=== PATIENT | male | born 1945 | race Caucasian/White ===

== ENCOUNTER 2021-10-29 19:28 | Emergency (ER) | payer OTHER, MEDICARE, MEDICAID ==
[~2021-10-29] VITALS: Ht 182.9 cm; Wt 100.0 kg
[~2021-10-29 19:28] MED LIST: CEFP100T7 PO; FURO20TA4 PO; POTA-82 PO
[2021-10-29] MEDS ORDERED: LIDOcaine 1% W/epiNEPHrine 1:100,000 20ml vial SQ ONE (20:00)
[2021-10-29 20:36] VITALS: BP 154/87
== END 2021-10-29 21:30 | disposition home or self-care (01) ==
LOC: ER 19:29
DX: S01.01XA Laceration without foreign body of scalp, initial encounter (principal); S09.90XA Unspecified injury of head, initial encounter; F10.129 Alcohol abuse with intoxication, unspecified; F12.90 Cannabis use, unspecified, uncomplicated; Z86.19 Personal history of other infectious and parasitic diseases; Z90.49 Acquired absence of other specified parts of digestive tract; Z72.89 Other problems related to lifestyle; Z79.899 Other long term (current) drug therapy; Z88.8 Allergy status to other drugs, medicaments and biological substances; W22.8XXA Striking against or struck by other objects, initial encounter; Y93.89 Activity, other specified; Y92.89 Other specified places as the place of occurrence of the external cause; Y99.8 Other external cause status; Y90.9 Presence of alcohol in blood, level not specified
CPT/HCPCS: 12002; 99283

== ENCOUNTER 2025-04-21 09:50 | Inpatient (IN) | payer OTHER, MEDICARE, MEDICAID ==
[~2025-04-21] VITALS: Ht 195.6 cm; Wt 100.0 kg
[~2025-04-21 09:50] MED LIST changes: +POTA-366 PO; -POTA-82 PO
--- NOTE | 2025-04-21 11:17 | RADIOLOGY REPORT ---
CLINICAL INDICATION: necrotc great toe TECHNIQUE: Left DI FOOT, COMPLETE (3VW MIN) Comparison: FOOT, COMPLETE (3VW MIN) on DOS: 02/08/21 FINDINGS/IMPRESSION: : Soft-tissue swelling and subcutaneous emphysema of the distal 1st metatarsal and distal 1st digit. Suggestion of displaced fracture of the 1st distal phalanx. Probable erosive changes suspicious for osteomyelitis involving the 1st proximal and distal phalanx. Clinical correlation advised.
--- NOTE | 2025-04-21 11:21 | RADIOLOGY REPORT ---
CLINICAL INDICATION: TOE PAIN - RT FOOT TECHNIQUE: DI FOOT, COMPLETE (3VW MIN) Comparison: DI FOOT, COMPLETE (3VW MIN) on DOS: 04/21/25, FOOT, COMPLETE (3VW MIN) on DOS: 02/08/21 FINDINGS/IMPRESSION: : There is no evidence of acute fracture or dislocation. Soft tissues are unremarkable. Postsurgical resection of the distal 1st digit from the level of the metatarsal.
[2025-04-21 11:28] LABS: MEAN PLATELET VOLUME 9.5 FL (7.4-10.4); RED CELL DISTRIBUTION WIDTH 14.3 % (11.5-14.5)
--- NOTE | 2025-04-21 11:35 | Physician Documentation ---
History of Present Illness ~ Chief Complaint: Foot pain Stated Complaint: FOOT WOUND Time Seen by MD: 10:27 Primary Medical Doctor: LAVERNE MONROE 79-year-old male presents to the ED with a complaint of left foot pain for the last month. He states that his foot smells. He denies any fevers however denies any history of diabetes. This is a poor historian however he does say that he has been evaluated by a chucking machine set up operator tool. Day of Onset: Apr 21, 2025 Tetanus witin 5 years: Yes Medication Reconciliation Allergies: Coded Allergies: nystatin (Unverified Allergy, Mild, RASH, 04/21/25) HAS A RASH EVERY TIME HE TAKES IT. Scheduled Gabapentin (Gabapentin), 2 CAP PO Q8H, (Reported) Discontinued Medications Cefpodoxime Proxetil (Cefpodoxime Proxetil), Unknown Dose PO Q12H, (Reported) Discontinued Reason: patient no longer taking Furosemide (Furosemide), 1 TAB PO DAILY, (Reported) Discontinued Reason: patient no longer taking Potassium Chloride (Potassium Chloride), 1 TAB PO DAILY, (Reported) Discontinued Reason: patient no longer taking Past Medical History Past Medical History: Cellulitis Past Surgical History: cholecystectomy, orthopedic surgeries Patient History: FH: diabetes mellitus brother sister Alcohol Use: Abuse Drug Use: marijuana Lives with: Alone Lives In: Home Physical Exam Vital Signs: Temperature: 97.7, Source: Oral, Heart Rate: 79, Respiratory Rate: 18, BP: 144/97, Pulse Oximetry: 99, Weight: 100.000 Oxygen Flow Rate: 0 Physical Exam General: Alert, no apparent distress. HEENT: PERRL, EOMI, no injection, moist mucous membranes. Extremities: Foot is notable for necrotic tissue from the great toe proximal to the metatarsal. Drainage, decreased range of motion, foul smell Neurologic: Oriented x4. Psychiatric: Normal mood and affect. Skin: Normal color, warm and dry. No edema, no ecchymosis. Progress Results/Orders Results/Orders Orders - NOLA FLEMING NP Page Hospitalist (04/21/25 ) Completed Orders - NOLA FLEMING NP Vancomycin*Pharmacy To Dose* (Vancomycin (04/21/25 11:30) Vancomycin/Ns 1 Gm Add-[place] (Vancomyc (04/21/25 11:40) Medications Received in ER Medications (Trade) Dose Ordered Sig/Xiao Route PRN Reason Start Time Stop Time Status Last Admin Dose Admin Vancomycin HCl 250 ml @ 166 mls/hr ONCE ONCE IV 04/21/25 11:40 04/21/25 13:10 DC 04/21/25 12:03 166 MLS/HR ([place] 10/325mg tab) 1 tab Q4H PRN PO SEVERE PAIN 7-10 04/21/25 11:45 04/21/25 12:24 1 TAB Sodium Chloride 1,000 ml @ 100 mls/hr Q10H IV 04/21/25 11:45 04/21/25 12:24 100 MLS/HR Vital Signs 04/21/25 04/21/25 04/21/25 09:57 11:20 11:20 Temp 97.7 Pulse 75 79 Resp 18 18 18 B/P (MAP) 128/85 144/97 (113) Pulse Ox 99 O2 Flow Rate 0 Laboratory Tests Test 04/21/25 11:01 White Blood Count 19.6 H Red Blood Count 4.69 L Hemoglobin 15.5 Hematocrit 45.4 Mean Corpuscular Volume 96.7 Mean Corpuscular Hemoglobin 33.0 H Mean Corpuscular Hemoglobin Concent 34.2 Red Cell Distribution Width 14.3 Platelet Count 372 Mean Platelet Volume 9.5 Neutrophils (%) (Auto) 89.6 H Lymphocytes (%) (Auto) 6.2 L Monocytes (%) (Auto) 3.3 Eosinophils (%) (Auto) 0.1 Basophils (%) (Auto) 0.8 Neutrophils # (Auto) 17.5 H Lymphocytes # (Auto) 1.2 Monocytes # (Auto) 0.7 Eosinophils # (Auto) 0.0 Basophils # (Auto) 0.2 CBC Comment Sodium Level 132 L Potassium Level 4.5 Chloride Level 97 L Carbon Dioxide Level 26.8 Anion Gap 8 Blood Urea Nitrogen 19 H Creatinine 0.88 Estimated GFR/1.73 m2 84 BUN/Creatinine Ratio 21.6 H Glucose Level 110 H Lactic Acid Level 2.6 H Calcium Level 9.5 Albumin 2.3 L Procalcitonin 0.13 Chemistry Comments Microbiology Date/Time Source Procedure Growth Status 04/21/25 11:08 Blood Hand Left Blood Culture - Preliminary NEGATIVE (LESS THAN 24 HOURS) Resulted Medical Decision Making Findings Spoke to Dr. Hearn regarding this patient he will evaluate the patient take him to the OR tomorrow Toe Diff Dx:Considerations: Include: Abrasion, Cellulitis, Contusion, D islocation, Felon, Fracture, Hematoma, Laceration, Neurovascular injury, Open fracture, Paronychia, Subungual hematoma, Other Departure Disposition: ADMITTED INPATIENT Impression: Primary Impression: Necrosis Additional Impression: Osteomyelitis of ankle or foot, left, acute Condition: Stable Referrals: NO PRIMARY CARE PROVIDER (PCP) Signature Scribe Signature: f Attestation: Scribed for Nola Fleming Component Prep Operator by Nola Dunn NP . 04/21/25 15:06 ONLA FLEMING NP Apr 21, 2025 11:35
[2025-04-21 11:43] LABS: CREATININE 0.88 MG/DL (0.60-1.10); TOTAL CARBON DIOXIDE 26.8 MMOL/L (24-32); eCRCL 89 ML/MIN; eGFR 84 ML/MIN
[2025-04-21] MEDS ORDERED: potassium Cl 40MEQ/1/2NS 520ml 520 ML IV PRN (11:45)
[2025-04-21] MEDS ORDERED: potassium Cl 20 mEq SR tablet PO PRN ×2 (11:45)
[2025-04-21] MEDS ORDERED: magnesium sulf-water 2g/50mL 50 ML IV PRN (11:45)
[2025-04-21] MEDS ORDERED: magnesium Cl slow-release 64mg tablet PO PRN (11:45)
[2025-04-21] MEDS ORDERED: magnesium sulf-water 4G/100mL 100 ML IV PRN (11:45)
[2025-04-21] MEDS ORDERED: ondansetron/PF 4mg/2ml inj IV PRN (11:45)
[2025-04-21] MEDS ORDERED: GABA-530 PO (11:56)
[2025-04-21] MEDS: vancomycin/NS 1 GM ADD-VANTAGE 250 ML X 1 DOSE IV ONE (12:03)
[2025-04-21] MEDS: normal saline 1000ml 1,000 ML IV SCH (12:24)
[2025-04-21] MEDS: HYDROcodone/acetaminophen 10/325mg tab PO PRN (12:24)
[2025-04-21 14:05] LABS: LEUKOCYTE ESTERASE ,URINE NEGATIVE (Neg); OCCULT BLOOD,URINE NEGATIVE (Neg)
[2025-04-21 14:08] LABS: NITRITES, URINE NEGATIVE (Neg); UA COLLECTION TYPE NON-SPECIFIED
[2025-04-21 14:17] LABS: MUCUS STRANDS MODERATE /LPF (Neg); RENAL CELLS, URINE MODERATE /HPF; SQUAMOUS EPITHELIAL CELL,UR FEW /LPF (FEW)
[2025-04-21 14:23] LABS: AMORPHOUS URATES 1+
--- NOTE | 2025-04-21 15:10 | RADIOLOGY REPORT ---
CHEST RADIOGRAPH Indication: RO SEPSIS Technique: Single frontal view of the chest was obtained COMPARISON: CHEST,SINGLE VIEW on DOS: 02/15/21 FINDINGS: Lines and Tubes: None Lungs: Clear Pleura: No effusion. No pneumothorax. Cardiomediastinal contours: Unremarkable Bones: Unremarkable IMPRESSION: No acute disease.
[2025-04-21 15:25] VITALS: BP 130/80; PULSE 99; RESP 18; TEMP 97.5; O2SAT 99
[2025-04-21 15:46] VITALS: RESP 16; O2SAT 98
[2025-04-21 18:00] VITALS: BP 124/74; PULSE 80; RESP 18; TEMP 97.2; O2SAT 99
[2025-04-21] MEDS: HYDROcodone/acetaminophen 5mg/325mg tablet PO PRN (18:01)
--- NOTE | 2025-04-21 18:37 | HISTORY AND PHYSICAL ---
History & Physical Providers to CC ~ History of Present Illness Reason for Admit\Complaint: Wound over left foot getting worse History of Present Illness Patient is 79-year-old male as per patient he only takes two medication gabapentin and one more. He is not a very good historian. He mentioned since last one month his condition is decline more he had a fall and now he is at the point that he has to crawl on his back to get to the bed. He is not walking currently. He lives by himself. According to patient he is smoking one pack of cigarettes per day. He mentioned that since last two months the wound over the left foot is getting more bad. He was using compression stockings over lower extremity which did not helped. He was also using ammonium lactate but feels that is also not working. He was seen by with primary care physician in [place] Dr. Sanchez. He is currently sober last drink of alcohol in December, use cannabis more than one month back. He was seen by Podiatry specialist in past Dr. López. He states that his foot smells. He denies any fevers however denies any history of diabetes. Osteomyelitis of left foot suspected and hospitalist services contacted for admission and further management Allergies: Coded Allergies: nystatin (Unverified Allergy, Mild, RASH, 04/21/25) HAS A RASH EVERY TIME HE TAKES IT. Home Medications Home Medications Active Reported Gabapentin 100 Mg Capsule 2 Cap PO Q8H Past Medical History Past Medical History Chronic right great toe infection Past Surgical History Surgical History Comment Cholecystectomy, orthopedic surgeries Family History Family History: FH: diabetes mellitus brother sister Past Social History Social History Comment Smokes a pack of cigarettes a day, ROS ROS Review of system as mentioned above in HPI rest unremarkable Exam Vitals: Vital Signs Date Time Temp Pulse Resp B/P (MAP) Pulse Ox O2 Delivery O2 Flow Rate FiO2 04/21/25 15:46 16 98 Room Air 04/21/25 15:25 97.5 99 130/80 (97) 04/21/25 14:00 0 General: General-patient not in any acute distress, alert awake chronically ill- appearing HEENT-atraumatic normocephalic, neck supple without elevated JVD, no thyromegaly or carotid bruit. No lymphadenopathy bilaterally. Eyes-no icterus or pallor seen in eyes Chest-clear to auscultation bilaterally, breathing nonlabored no tachypnea, no wheezing, no crepitation, no crackles. Heart-S1-S2 normal, regular heart rate no murmur Abdomen bowel sounds positive on auscultation, soft nondistended nontender no guarding, no rigidity Skin/Extremity- able to move all 4 extremities, gangrenous and necrotic left toes Neurology-grossly intact, nonfocal alert awake Psychiatry - patient is not confused or agitated cooperated during physical examination Diagnostic Data Last Recorded Lab Results: 04/21/25 1101 04/21/25 1101 Advance Care Planning Advanced Care plannin - 30 Minutes Additional Plan Patient is 79-year-old male status post right hip hemiarthroplasty, status post right hallux amputation. History of chronic great toe cellulitis and osteomyelitis, current tobacco use. Patient is admitted for gangrenous and necrotic left foot, suspected osteomyelitis of left foot. ER provider Spoke to Dr. Hearn regarding this patient he will evaluate the patient take him to the OR tomorrow. We will keep patient NPO after midnight on no blood thinner. Patient is started on IV antibiotics and fluids. Further management as recommended by senior loss control specialist. We will do home medication reconciliation once updated in electronic medical records. Code status discussed with the patient patient wishes to stay full code, time spent 16 minute. I will continue to follow patient in a.m. Date of Service: Apr 21, 2025 Billing Provider: GUY MORALES MD Common Visit Codes: [id number] INP/OBS CARE (HIGH) Secondary Visit Codes: [id number] CARE PLAN 30 MINUTES GUY MORALES MD Apr 21, 2025 18:36
[2025-04-21 20:00] VITALS: RESP 18; O2SAT 99
[2025-04-21] MEDS ORDERED: heparin, porcine 5000 units/ml vial SQ SCH (20:00)
[2025-04-21 22:00] VITALS: BP 104/60; PULSE 86; RESP 16; TEMP 98; O2SAT 93
[2025-04-22] VITALS (19 sets, daily range): BP systolic 112–142; BP diastolic 68–74; PULSE 52–79; RESP 11–22; TEMP 97–98.1; O2SAT 92–99
[2025-04-22] MEDS: vancomycin/NS 1 GM ADD-VANTAGE 250 ML IV SCH (00:15)
[2025-04-22 04:51] LABS: MEAN PLATELET VOLUME 9.1 FL (7.4-10.4); RED CELL DISTRIBUTION WIDTH 14.3 % (11.5-14.5)
[2025-04-22 05:09] LABS: CREATININE 0.87 MG/DL (0.60-1.10); TOTAL CARBON DIOXIDE 29.1 MMOL/L (24-32); eCRCL 90 ML/MIN; eGFR 85 ML/MIN
[2025-04-22] MEDS ORDERED: bacitracin 15gm ointment TP ONE (09:05)
--- NOTE | 2025-04-22 09:38 | ELECTROCARDIOGRAPH REPORT ---
[facility] Test Date: 2025-04-22 Test Time: 07:13:08 Pat Name: CYNTHIA CAMPUZANO Department: Room: [place] [address] A Gender: M Emergency Care Attendant: ADRY : 1945 Requested By: PIETER LOPEZ Order Number: [id number] Reading MD: Dr. ANDREA Flores Measurements Intervals [place] Rate: 74 P: 25 RI: 176 QRS: 1 QRSD: 144 T: 25 QT: 436 QTc: 483 Interpretive Statements Sinus rhythm with occasional premature ventricular complexes and fusion complexes Right bundle branch block Electronically Signed On 04-22-2025 17:31:[address] ANDREA Flores Please click the below link to view image of tracing.
[2025-04-22] MEDS: ringers solution, lacted 1,000 ML IV SCH (10:05)
[2025-04-22] MEDS ORDERED: ondansetron/PF 4mg/2ml inj IV PRN (10:05)
[2025-04-22] MEDS ORDERED: hydrALAZINE 20mg/ml inj. IV PRN (10:05)
[2025-04-22] MEDS ORDERED: labetalol 20mg/4ml (5mg/ml) syringe IV PRN (10:05)
[2025-04-22] MEDS ORDERED: fentaNYL/PF 50MCG/1 ML 2ML syringe IV PRN ×2 (10:05)
[2025-04-22] MEDS ORDERED: morphine 4 MG/ML inj SYRINge IV PRN (10:05)
[2025-04-22] MEDS ORDERED: midazolam 1 mg/ML 2ml injection ONE ×2 (10:28→11:41)
[2025-04-22] MEDS ORDERED: MIDAZolam 1 MG/ML 5ML VIAL ONE (11:42)
[2025-04-22] MEDS: bacitracin 15gm ointment TP ONE (12:03)
--- NOTE | 2025-04-22 13:18 | CONSULTATION REPORT ---
History of Present Illness Providers to CC ~ Reason for Admit\Admit Dx: Wound over left foot getting worse Refering MD: LAVERNE History of Present Illness 79-year-old male who presents with progressive wound drainage involving the left foot. He was admitted for gangrenous involvement involving his left foot including osteomyelitis of several falls in his left foot. Past medical history: This is per admitting history and physical which was reviewed by me Patient denies alcohol and/or tobacco use. Review of systems: Patient is having isolated pain involving the left lower extremity denies any other extremity pain at this time. Examination: Alert oriented disheveled-appearing white male in no acute distress. Extremity exam lower extremities reveal significant ischemic changes with absent distal pulses two and chronic ischemic skin changes involving the right foot previous great toe amputation. Left foot has had had previous debridements to his left foot with ischemic necrotic tissue involving absent ankle pulses on exam. Ischemic changes of the proximal 2/3 of his lower extremity no evidence of gross cellulitis. Ischemic changes began approximately 3 in above the ankle mortise. Assessment: Has obvious osteomyelitic involvement of the left foot with + ischemic changes and gangrenous changes involving the skin and deep tissues of the left foot. Plan: Patient has opted for surgical [id number] amputation and after the table with minimize potential for progressive septicemia. He understands the indications risks benefits limitations and potential complications from this procedure. Intraoperative findings will dictate whether or not this can be a single procedure or a staged procedure/debridement. We placed in the surgery center schedule as soon as time allows. Thank you for the consultation Allergies: Coded Allergies: nystatin (Unverified Allergy, Mild, RASH, 04/21/25) HAS A RASH EVERY TIME HE TAKES IT. Home Medications Home Medications Active Reported Gabapentin 100 Mg Capsule 2 Cap PO Q8H Past Family History Family History: FH: diabetes mellitus brother sister Physical Exam Last Vital Signs Recorded: Temperature: 97.0, Source: Temporal, Heart Rate: 67, Respiratory Rate: 11, BP: 116/72, Pulse Oximetry: 93, Weight: 100.000 Results Diagram Lab Result Diagram: 04/22/25 0432 04/22/25 0432 PIETER LOPEZ MD Apr 22, 2025 13:18
--- NOTE | 2025-04-22 13:29 | OPERATIVE REPORT ---
Operative Report Providers to ~ Date of Procedure: Apr 22, 2025 Pre-Operative Diagnosis: possible Osteomyelitis involving the 1st proximal and distal phalanx Post-Operative Diagnosis SAME as PRE-Op Procedure Performed Xkzdl-[id number]-hlmy amputation left foot with primary closure over a drain Surgeon: Trung Lopez MD Honing Machine Operator None Anesthesiologist: [place] Javier Type of Anesthesia: Other, Spinal Findings: Patient is found to have gross purulent changes consistent with osteomyelitis involving his left foot in his ischemic extensive ischemic changes involving the mid and hindfoot. With gross ulceration of his 1st ray and portions of his hindfoot. Complications None Prosthetics\Implants used: None Estimated Blood Loss: 100 mL Specimen Removed: [id number] the lower leg was removed approximately 5 in below the joint line Description of Procedure: Patient was taken to the operating room after informed consents were obtained. I discussed with him the indications his treatment options relative limitations potential complications to his understanding and satisfaction. Once informed consents were signed for taken to the operating room releasing him a spinal anesthetic and placed in the supine position in the OR table right leg was placed in an SCD devices left leg was placed in an upper thigh tourniquet which was well padded the leg was now prepped and draped in usual sterile orthopaedic fashion. A impervious drape was placed around the foot and ankle and Coban was used to isolate this portion of the extremity. Surgical time-out was taken per protocol and the case was begun. After the leg had an elevated for 10 minutes tourniquet was insufflated. The skin incisions were outlined with indelible marker anterior 3rd incision transition transverse incision was made approximately 15 cm below the joint line and then longitudinal incisions at at each end of this med medial and mid lateral were then extended down to approximately 2/3 the length of the anterior incision and then a transverse incision was made posterior to connect these two longitudinal incisions for the amputation. Dissection was then carried through the anterior and lateral and medial incision visualize the musculature using electrocautery dissection was then proceeded to expose the tibia once this was visualized in sagittal saw was used to make an perpendicular cut process bone. Dissection was then carried down laterally and a proximally 1 in proximal to the amputation site of the tibia to osteotomy of the proximal fibula hemostasis was achieved and then cauterized neurovascular structures throughout the case using 0 Vicryl ties and/or electrocautery release of the anterior lateral compartment. Neurovascular structures posterior to the tibia were tied off with 0 Vicryl and then they amputation leg was used to trim the posterior flap and debulk it all the way down to the posterior incision. Leg was now removed from the table and sent for pathology for gross evaluation. Wounds were copiously irrigated there were no signs of ischemic changes or necrotic material and/or purulent material. Tourniquet was released and hemostasis was achieved again with 0 Vicryl ties and/or electrocautery good vascularity to the flap posterior flap was intact. After 2 L of antiseptic irrigation of the posterior flap was brought anterior over a medium Hemovac drain and sutured into the periosteum and and anterior fascia with interrupted sutures of 2. FiberWire using a [id number]-ri-xajki sutures the skin was then closed with 0 Vicryl subcuticularly achieving complete closure of the skin and then itself was closed with skin lance. The capillary refill returned and remained in the posterior flap. Hemovac drain was placed to close suction sterile dressings were applied bulky dressing was placed in the distal stump site with a shrink sock in place held in position with Coban tape. Patient was now transferred to the rlamar and recovery room in stable condition there were no apparent perioperative complications needle and sponge count was reported to be correct Counts repoted as correct: Yes TRUNG LOPEZ MD Apr 22, 2025 13:29
[2025-04-22] MEDS ORDERED: oxyCODONE/APAP 5-325mg tablet PO PRN ×2 (18:40→20:25)
--- NOTE | 2025-04-22 19:23 | PROGRESS NOTE ---
Daily Progress Note Providers to CC ~ Antibiotic Timeout Antibiotic Ordered?: Yes Subjective Patient was seen in his room in presence of nursing staff patient mentioned that oxycodone work better for him instead of morphine and [place]. Patient usually sleeps on his side and wanted something to help him for sleeping. I restarted diet for him and we will re-evaluate patient in a.m. Objective Vital Signs Date Time Temp Pulse Resp B/P (MAP) Pulse Ox O2 Delivery O2 Flow Rate FiO2 04/22/25 17:07 18 04/22/25 16:10 97.7 68 133/69 (90) 92 Room Air 04/22/25 13:20 0.0 Result Diagram: 04/22/25 0432 04/22/25 043 General-patient not in any acute distress, awake chronically ill-appearing HEENT-atraumatic normocephalic, neck supple without elevated JVD, no thyromegaly or carotid bruit. No lymphadenopathy bilaterally. Eyes-no icterus or pallor seen in eyes Chest-clear to auscultation bilaterally, breathing nonlabored no tachypnea, no wheezing, no crepitation, no crackles. Heart-S1-S2 normal, regular heart rate no murmur Abdomen bowel sounds positive on auscultation, soft nondistended nontender no guarding, no rigidity Skin/Extremity- able to move upper extremities , surgical dressing in place over left lower extremity, Neurology-grossly intact, nonfocal awake Psychiatry - patient is not confused or agitated cooperated during physical examination Problem\Assessment\Plan 04/21/25- Patient is 79-year-old male status post right hip hemiarthroplasty, status post right hallux amputation. History of chronic great toe cellulitis and osteomyelitis, current tobacco use. Patient is admitted for gangrenous and necrotic left foot, suspected osteomyelitis of left foot. ER provider Spoke to Dr. Hearn regarding this patient he will evaluate the patient take him to the OR tomorrow. We will keep patient NPO after midnight on no blood thinner. Patient is started on IV antibiotics and fluids. 04/22/25- s/p Ulnlh-nnu-nyaj amputation left foot with primary closure over a drain for possible Osteomyelitis involving the 1st proximal and distal phalanx by Dr Trung Hearn MD. Further management as recommended by habilitation specialist. home medication reconciliation updated in electronic medical records. # Code status discussed with the patient patient wishes to stay full code Patient's current condition is guarded we will continue to follow patient in a.m. I will continue to follow patient in a.m. Date of Service: Apr 22, 2025 Billing Provider: GUY MORALES MD Common Visit Codes: [id number] INP/OBS CARE(HIGH) GUY MORALES MD Apr 22, 2025 19:23
[2025-04-22] MEDS: VANCOMYCIN LEVEL IV ONE (23:30)
[2025-04-23] VITALS (7 sets, daily range): BP systolic 112–155; BP diastolic 65–92; PULSE 53–78; RESP 15–20; TEMP 97.5–98.7; O2SAT 92–96
[2025-04-23 06:03] LABS: MEAN PLATELET VOLUME 9.1 FL (7.4-10.4); RED CELL DISTRIBUTION WIDTH 14.1 % (11.5-14.5)
[2025-04-23 06:15] LABS: CREATININE 0.61 MG/DL (0.60-1.10); TOTAL CARBON DIOXIDE 30.6 MMOL/L (24-32); eCRCL 128 ML/MIN; eGFR > 90 ML/MIN
[2025-04-23] MEDS: VANCOmycin 1250MG/NS 250ml Bag 250 ML IV SCH (12:11)
--- NOTE | 2025-04-23 20:39 | PROGRESS NOTE ---
Daily Progress Note Providers to CC ~ Antibiotic Timeout Antibiotic Ordered?: Yes Subjective Patient looks comfortable. He is waiting for the rehab placement no new concerns. sales and business development manager Ariadna working on rehab discharge plan Objective Vital Signs Date Time Temp Pulse Resp B/P (MAP) Pulse Ox O2 Delivery O2 Flow Rate FiO2 04/23/25 19:41 16 04/23/25 18:00 97.6 53 124/67 (86) 96 Room Air 04/22/25 13:20 0.0 Result Diagram: 04/23/25 0438 04/23/25 0438 General-patient not in any acute distress, awake chronically ill-appearing HEENT-atraumatic normocephalic, neck supple without elevated JVD, no thyromegaly or carotid bruit. No lymphadenopathy bilaterally. Eyes-no icterus or pallor seen in eyes Chest-clear to auscultation bilaterally, breathing nonlabored no tachypnea, no wheezing, no crepitation, no crackles. Heart-S1-S2 normal, regular heart rate no murmur Abdomen bowel sounds positive on auscultation, soft nondistended nontender no guarding, no rigidity Skin/Extremity- able to move upper extremities , surgical dressing in place over left lower extremity, Neurology-grossly intact, nonfocal awake Psychiatry - patient is not confused or agitated cooperated during physical examination Problem\Assessment\Plan 04/21/25- Patient is 79-year-old male status post right hip hemiarthroplasty, status post right hallux amputation. History of chronic great toe cellulitis and osteomyelitis, current tobacco use. Patient is admitted for gangrenous and necrotic left foot, suspected osteomyelitis of left foot. ER provider Spoke to Dr. Hearn regarding this patient he will evaluate the patient take him to the OR tomorrow. We will keep patient NPO after midnight on no blood thinner. Patient is started on IV antibiotics and fluids. 04/22/25- s/p Fbivp-gnp-lfau amputation left foot with primary closure over a drain for possible Osteomyelitis involving the 1st proximal and distal phalanx by Dr Trung Hearn MD. Further management as recommended by strategy specialist. home medication reconciliation updated in electronic medical records. # Code status discussed with the patient patient wishes to stay full code Patient's current condition is guarded we will continue to follow patient in a.m. I will continue to follow patient in a.m. Date of Service: Apr 23, 2025 Billing Provider: GUY MORALES MD Common Visit Codes: [id number] INP/OBS CARE(HIGH) GUY MORALES MD Apr 23, 2025 20:39
[2025-04-24 05:50] LABS: MEAN PLATELET VOLUME 8.8 FL (7.4-10.4); RED CELL DISTRIBUTION WIDTH 14.2 % (11.5-14.5)
[2025-04-24 06:16] LABS: CREATININE 0.70 MG/DL (0.60-1.10); TOTAL CARBON DIOXIDE 30.9 MMOL/L (24-32); eCRCL 111 ML/MIN; eGFR > 90 ML/MIN
[2025-04-24 06:35] VITALS: BP 130/67; PULSE 63; RESP 20; TEMP 98; O2SAT 96
[2025-04-24 08:00] VITALS: RESP 18
[2025-04-24 10:00] VITALS: BP 110/58; PULSE 90; RESP 18; TEMP 97.6; O2SAT 93
--- NOTE | 2025-04-24 11:54 | PROGRESS NOTE ---
Daily Progress Note Providers to CC ~ Antibiotic Timeout Antibiotic Ordered?: Yes Subjective Patient was seen in his room , looks comfortable. Patient is waiting for rehab placement . regional branch manager Ariadna working on rehab discharge plan for him. Objective Vital Signs Date Time Temp Pulse Resp B/P (MAP) Pulse Ox O2 Delivery O2 Flow Rate FiO2 04/24/25 08:00 18 Room Air 04/24/25 06:35 98.0 63 130/67 (88) 96 04/22/25 13:20 0.0 Result Diagram: 04/24/25 0509 04/24/25 0509 General-patient not in any acute distress, awake chronically ill-appearing HEENT-atraumatic normocephalic, neck supple without elevated JVD, no thyromegaly or carotid bruit. No lymphadenopathy bilaterally. Eyes-no icterus or pallor seen in eyes Chest-clear to auscultation bilaterally, breathing nonlabored no tachypnea, no wheezing, no crepitation, no crackles. Heart-S1-S2 normal, regular heart rate no murmur Abdomen bowel sounds positive on auscultation, soft nondistended nontender no guarding, no rigidity Skin/Extremity- able to move upper extremities , surgical dressing in place over left lower extremity, Neurology-grossly intact, nonfocal awake Psychiatry - patient is not confused or agitated cooperated during physical examination Problem\Assessment\Plan 04/21/25- Patient is 79-year-old male status post right hip hemiarthroplasty, status post right hallux amputation. History of chronic great toe cellulitis and osteomyelitis, current tobacco use. Patient is admitted for gangrenous and necrotic left foot, suspected osteomyelitis of left foot. ER provider Spoke to Dr. Hearn regarding this patient he will evaluate the patient take him to the OR tomorrow. We will keep patient NPO after midnight on no blood thinner. Patient is started on IV antibiotics and fluids. 04/22/25- s/p Xxdap-gac-[id number] amputation left foot with primary closure over a drain for possible Osteomyelitis involving the 1st proximal and distal phalanx by Dr Trung Hearn MD. Further management as recommended by customer sales specialist. home medication reconciliation updated in electronic medical records. # Code status discussed with the patient patient wishes to stay full code Patient's current condition is guarded we will continue to follow patient in a.m. I will continue to follow patient in a.m. Date of Service: Apr 24, 2025 Billing Provider: GUY MORALES MD Common Visit Codes: [id number] INP/OBS CARE(HIGH) GUY MORALES MD Apr 24, 2025 11:54
[2025-04-24 18:00] VITALS: BP 119/70; PULSE 70; RESP 18; TEMP 97.3; O2SAT 93
[2025-04-24 20:00] VITALS: RESP 16; O2SAT 98
[2025-04-24 22:00] VITALS: BP 128/62; PULSE 68; RESP 16; TEMP 98.4; O2SAT 95
[2025-04-24] MEDS: magnesium hydroxide 30ml (MOM) UD suspension PO PRN (22:15)
[2025-04-25] MEDS: VANCOMYCIN LEVEL IV ONE (00:29)
[2025-04-25 06:00] LABS: MEAN PLATELET VOLUME 8.8 FL (7.4-10.4); RED CELL DISTRIBUTION WIDTH 14.5 % (11.5-14.5)
[2025-04-25 06:20] VITALS: BP 127/77; PULSE 63; RESP 16; TEMP 97.9; O2SAT 94
[2025-04-25 11:00] VITALS: BP 119/69; PULSE 64; RESP 16; TEMP 98.2; O2SAT 96
--- NOTE | 2025-04-25 14:52 | DISCHARGE SUMMARY ---
Discharge Summary Providers to CC ~ Discharge Summary Admission Diagnosis: possible Osteomyelitis involving the 1st proximal and distal phalanx Hospital Course DATE OF ADMISSION: April 21, 2025 DATE OF DISCHARGE: April 25, 2025 CBC testing done on April 25, 2025 WBC 8.2 hemoglobin 11.3 hematocrit 33.0 plat elet count 268. Serum chemistry done on April 24, 2025 sodium 137 potassium 3.6 creatinine 0.70 GFR 90 normal liver enzymes. Procalcitonin 0.13. Blood culture showed no growth after 4 days. FOOT, COMPLETE (3VW MIN)FINDINGS/IMPRESSION: : Soft-tissue swelling and subcutaneous emphysema of the distal 1st metatarsal and distal 1st digit. Suggestion of displaced fracture of the 1st distal phalanx. Probable erosive changes suspicious for osteomyelitis involving the 1st proximal and distal phalanx. Clinical correlation advised. FOOT, COMPLETE (3VW MIN)FINDINGS/IMPRESSION: : There is no evidence of acute fracture or dislocation. Soft tissues are unremarkable. Postsurgical resection of the distal 1st digit from the level of the metatarsal. CHEST,SINGLE VIEW-IMPRESSION: No acute disease. Discharge Diagnosis\Comment: s/p Sxhpp-wqu-xjkc amputation left foot with primary closure over a drain for possible Osteomyelitis involving the 1st proximal and distal phalanx , status post right hip hemiarthroplasty, status post right hallux amputation. History of chronic great toe cellulitis and osteomyelitis, current tobacco use. Operations\Procedures: s/p Anjgp-hzk-dyen amputation left foot with primary closure over a drain for possible Osteomyelitis involving the 1st proximal and distal phalanx Consultants: Dr Trung Hearn MD. Complications: None Condition on DC: Stable Discharge Summary: Patient is 79-year-old male status post right hip hemiarthroplasty, status post right hallux amputation. History of chronic great toe cellulitis and osteomyelitis, current tobacco use. Patient is admitted for gangrenous and necrotic left foot, suspected osteomyelitis of left foot. ER provider Spoke to Dr. Hearn regarding this patient he evaluated the patient take him to the OR on 04/22/25. Patient is started on IV antibiotics and fluids. s/p Sdhsg-iqk-fqtu amputation left foot with primary closure over a drain for possible Osteomyelitis involving the 1st proximal and distal phalanx by Dr Trung Hearn MD. followed Further management as recommended by business process specialist. home medication reconciliation updated in electronic medical records. Patient's clinical condition improved during hospitalization and he is stable throughout his hospitalization stay. Patient is seen and examined on the day of discharge. He is discharged to rehab facility medication reconciliation done for rehab facility today. Case discussed with Dr. Hearn who is okay to discharge the patient on Keflex for three weeks. He wants to follow up with the patient in 2- 3 weeks. Drain removed and dressing change before his discharge. All questions and concerns answered to the best of my professional medical knowledge. General-patient not in any acute distress, awake chronically ill-appearing HEENT-atraumatic normocephalic, neck supple without elevated JVD, no thyromegaly or carotid bruit. No lymphadenopathy bilaterally. Eyes-no icterus or pallor seen in eyes Chest-clear to auscultation bilaterally, breathing nonlabored no tachypnea, no wheezing, no crepitation, no crackles. Heart-S1-S2 normal, regular heart rate no murmur Abdomen bowel sounds positive on auscultation, soft nondistended nontender no guarding, no rigidity Skin/Extremity- able to move upper extremities , surgical dressing in place over left lower extremity, Neurology-grossly intact, nonfocal awake Psychiatry - patient is not confused or agitated cooperated during physical examination *Problems/Diagnosis: (1) Osteomyelitis of ankle or foot, left, acute Status: Acute Total Time Spent on D/C: > 30 Minutes Date of Service: Apr 25, 2025 Billing Provider: GUY MORALES MD Common Visit Codes: 55689-INS/OBS DISCH DAY >30min GUY MORALES MD Apr 25, 2025 14:47
[2025-04-25] MEDS: vancomycin/NS 1 GM ADD-VANTAGE 250 ML IV SCH (15:38)
[2025-04-25 18:00] VITALS: BP 149/86; PULSE 85; RESP 18; TEMP 97.9; O2SAT 92
[2025-04-26] MEDS ORDERED: VANCOMYCIN LEVEL IV ONE (23:30)
== END 2025-04-25 18:48 | DRG 475 ==
LOC: ER 09:50 → ED HOLD 11:50 → SUR 3N 15:05
PROVIDERS: ADMIT Internal Medicine; ATTEND Internal Medicine
PROC: 0Y6J0Z1 Detachment at Left Lower Leg, High, Open Approach (ICD-10-PCS; principal; 2025-04-22 10:28)
DX: M86.172 Other acute osteomyelitis, left ankle and foot (principal); I96 Gangrene, not elsewhere classified; F17.210 Nicotine dependence, cigarettes, uncomplicated; Z83.3 Family history of diabetes mellitus
CPT/HCPCS: 36415; 71045; 73630; 80048; 80053; 80202; 81001; 82550; 82948; 83605; 84145; 85025; 87040; 87081; 93005; 96365; 96366; 96375; 97110; 97161; 97530; 99285; A4618; A6253; A6258; A6446; A6449; A7000; G0378; J2250; J2270; J3373; J3374; J7030; J7120

== ENCOUNTER 2025-08-06 13:28 | Emergency (ER) | payer OTHER, MEDICARE, MEDICAID ==
[~2025-08-06] VITALS: Ht 182.9 cm; Wt 102.2 kg
[~2025-08-06 13:28] MED LIST changes: -CEFP100T7 PO; -FURO20TA4 PO; +GABA-530 PO; +OXYC-150 PO; -POTA-366 PO
[2025-08-06 13:37] VITALS: BP 146/84; PULSE 65; TEMP 97.8; O2SAT 98
--- NOTE | 2025-08-06 15:24 | Physician Documentation ---
History of Present Illness ~ Chief Complaint: Leg Pain Stated Complaint: STENOSIS IN ARTERY Time Seen by MD: 14:28 OK to notify your PCP?: Yes Primary Medical Doctor: LAVERNE Source: patient Mode of Arrival: POV Exam Limitations: no limitations HPI Presenting via ambulance from [facility] acute for possible occlusion to the left leg. He denies having any leg pain, he does have a mzisr-alq-hhek amputation to the left leg 12 done in April of this year. He has yet to start wearing a prosthesis. He does have in his packet a report from paresthesia that was done yesterday for bilateral lower extremity arterial ultrasound and the impression shows findings consistent with moderate peripheral vascular disease without occlusion to the right extremity follow up MRA or CTA may be obtained as clinically warranted., findings consistent with mild to moderate peripheral vascular disease nxhlm-dca-fcwq without occlusion left lower extremity. Moderate stenosis 50-75% of the right proximal superficial femoral artery. Moderate stenosis 50-75% of the left posterior tibial artery, anterior tibial tibial artery. Mild plaque is noted within visualized arteries bilaterally. Patient reports that he was told that he had a blockage in his leg and needed to come here immediately. He denies any leg pain in either leg at this time. He is off dressing to the right foot for ulcerated toe. He reports that the wound care nurse change his bandage today. He reports it is looking much better than it used to. He denies any pain in that foot. Tetanus witin 5 years: Yes Medication Reconciliation Allergies: Coded Allergies: nystatin (Unverified Allergy, Mild, RASH, 08/06/25) HAS A RASH EVERY TIME HE TAKES IT. Scheduled Gabapentin (Gabapentin), 2 CAP PO Q8H, (Reported) Oxycodone HCl/Acetaminophen (Percocet 10-325 mg Tablet), 1 TAB PO DAILY, (Reported) Past Medical History Past Medical History: Cellulitis Past Surgical History: cholecystectomy, orthopedic surgeries Patient History: FH: diabetes mellitus brother sister Alcohol Use: Abuse Drug Use: marijuana Lives with: Alone Lives In: Home Physical Exam Vital Signs: RN Vital Signs have been reviewed: Yes, Temperature: 97.8, Source: Oral, Heart Rate: 65, Respiratory Rate: 18, BP: 146/84, Pulse Oximetry: 98, Weight: 102.200 Oxygen Flow Rate: 0 Pulse Oximetry Reflects: adequate oxygenation Physical Exam General: Alert, no apparent distress. HEENT: PERRL, EOMI, no injection, moist mucous membranes. Neck: Full range of motion. Respiratory: Lungs clear, no respiratory distress. Chest: No accessory muscle use. Cardiovascular: Regular rate and rhythm, no murmurs. Gastrointestinal: Soft, nontender, nondistended. Bowels sounds present. Extremities: BKA left leg, no wounds present. 1+ trace edema to right leg with amputated right great toe, ulceration and wound to 2nd toe on right foot, with a dressing in place that was replaced. 1+ pulses in right leg at posterior tibial Neurologic: Oriented x4. Psychiatric: Normal mood and affect. Skin: Normal color, warm and dry. No edema, no ecchymosis. Progress Results/Orders Reviewed/noted all lab results: Yes Results/Orders Orders - IRAM HODGSNO RECEIVING MANAGER * Additional Wound Care Orders (08/06/25 15:24) Vital Signs 08/06/25 13:37 Temp 97.8 Pulse 65 Resp 18 B/P (MAP) 146/84 Pulse Ox 98 O2 Flow Rate 0 Medical Decision Making Additional information obtaine: old records Findings He denies any leg pain. On close review of the ultrasound report from [facility] was done yesterday, it explicitly states that there is no occlusion in either leg and that there is moderate stenosis in both legs. I discussed this case with Dr. Calderon who agrees that none of these findings warrant further emergent imaging. Further imaging can be done on an outpatient basis if necessary. I discussed these findings also with the patient and we will be sending him back to [facility]. Patient agrees with the plan. General Diff Dx:Considerations: Include: Abrasion, Contusion Knee Diff Dx:Considerations: Include: Arthritis, Neurovascular injury Ankle Diff Dx:Considerations: Include: Arthritis, Neurovascular injury Foot Diff Dx:Considerations: Include: Neurovascular injury Toe Diff Dx:Considerations: Include: Neurovascular injury Additional Comment DVT, arterial occlusion. Departure Disposition: [facility] ([facility]) Impression: Primary Impression: Peripheral vascular disease Condition: Stable Discharge Instructions: Wound Care, Adult Additional Instructions: We replaced your bandage to the right foot. We reviewed your bilateral leg ultrasound report which specifically notes peripheral vascular disease to both legs without occlusion. There was moderate stenosis in both legs with mild plaque noted. Please follow up with your primary care provider as further imaging such as a CTA or MRA, if warranted, can be done on an outpatient basis. Return back here for any new or worsening symptoms. Referrals: NO PRIMARY CARE PROVIDER (PCP) Education Educated: Patient Educated regarding: diagnosis, treatment, prognosis, need for follow up Additional Comment Medical Screen Exam This patient recieved a medical screening examination. After reviewing the individual's medical complaints with presenting symptoms and performing an appropriate physical examination, it was determined that no immediate life- threatening emergency medical condition is present. This individual is also not a women having contractions. Signature Scribe Signature: . Attestation: Scribed for Iram Hodgson Technical Support Representative by Iram Dunn NP . 08/06/25 15:32 Parts of this note were created using [employer] voice recognition software program. While efforts were made to correct any mistakes made by this voice recognition software program, nonsensical phrases may remain in this note. In addition, there may be errors and syntax, grammar, content and spelling. IRAM HODGSON RECEIVING MANAGER Aug 06, 2025 15:24
[2025-08-06 15:39] VITALS: RESP 18
== END 2025-08-06 16:24 ==
LOC: ER 13:29
DX: I73.9 Peripheral vascular disease, unspecified (principal); F12.90 Cannabis use, unspecified, uncomplicated; Z88.8 Allergy status to other drugs, medicaments and biological substances; Z90.49 Acquired absence of other specified parts of digestive tract; Z79.899 Other long term (current) drug therapy; Z60.2 Problems related to living alone; Z98.890 Other specified postprocedural states
CPT/HCPCS: 99283; A6449